=== PATIENT | female | born 1985 | race Caucasian/White ===

== ENCOUNTER 2018-02-19 08:49 | Outpatient (CLI) | END 2018-02-19 11:31 | disposition home or self-care (01) ==

== ENCOUNTER 2018-02-26 08:22 | Outpatient (CLI) | END 2018-02-26 10:30 | disposition home or self-care (01) ==

== ENCOUNTER 2018-02-28 18:12 | Inpatient (IN) | END 2018-03-03 16:03 | disposition home or self-care (01) | DRG 775 ==

== ENCOUNTER 2018-03-31 18:27 | Emergency (ER) | END 2018-03-31 23:36 | disposition home or self-care (01) ==